=== PATIENT | female | born 1990 | race Hispanic/Latino ===

== ENCOUNTER 2019-01-11 09:25 | Day surgery (SDC) | payer OTHER ==
[2019-01-07 10:44] LABS: BASOPHILS % (AUTO) 0.5 % (0.0-5.0); EOSINOPHILS % (AUTO) 1.8 % (0.0-8.0); HEMATOCRIT 42.8 % (36-48); LYMPHOCYTES % (AUTO) 25.4 % (21.0-51.0); MEAN CORPUSCULAR HEMOGLOBIN 28.4 pg (27.0-33.0); MEAN CORPUSCULAR HGB CONC 33.3 g/dL (32.0-36.0); MEAN CORPUSCULAR VOLUME 85.1 fL (79-99); MONOCYTES % (AUTO) 4.3 % (3.0-13.0); PLATELET COUNT (AUTO) 285 K/uL (130-400); RED BLOOD CELL COUNT(AUTO) 5.03 MIL/uL (4.00-5.50); RED CELL DISTRIBUTION WIDTH 13.4 % (11.0-15.5); WHITE BLOOD COUNT (AUTO) 6.6 K/uL (4.8-10.8)
[2019-01-07 11:20] VITALS: BP 127/59
[~2019-01-11] VITALS: Ht 154.9 cm; Wt 94.2 kg
[2019-01-11] VITALS (13 sets, daily range): BP systolic 101–145; BP diastolic 47–96
[~2019-01-11 09:25] MED LIST: LACTATED RINGERS 1000ML 1,000 ML IV SCH
[2019-01-11] MEDS ORDERED: MIDAZOLAM HCL 1 MG/ML 2ML VIAL ONE (10:39)
[2019-01-11] MEDS ORDERED: FENTANYL CITRATE PF 50 MCG/1 ML 2ML VIAL ONE ×2 (10:39→11:56)
[2019-01-11] MEDS ORDERED: LIDOCAINE PF 2% 5ML ABBOJECT ONE (10:58)
[2019-01-11] MEDS ORDERED: ROCURONIUM 10MG/1ML SYR 10 MG/ML ML ONE (10:59)
[2019-01-11] MEDS ORDERED: PROPOFOL 10 MG/ML 20ML VIAL IV ONE ×2 (10:59→11:19)
[2019-01-11] MEDS ORDERED: ONDANSETRON HCL 4 MG/2 ML VIAL ONE (11:28)
[2019-01-11] MEDS ORDERED: GLYCOPYRROLATE 1 MG/5 ML SYRINGE ONE (11:39)
[2019-01-11] MEDS ORDERED: NEOSTIGMINE 5MG/5ML SYR IV ONE (11:39)
--- NOTE | 2019-01-11 11:52 | NUR ---
ASSESSMENT RECEIVED PT FROM OR STAFF DRSG TO ABD X2 CLEAN AND DRY. OB IN PLACE. SCANT BLOOD NOTED.
[2019-01-11] MEDS ORDERED: MEPERIDINE-PF 25 MG/ML SYG ONE (12:14)
[2019-01-11] MEDS ORDERED: ACETAMINOPHEN-CODEINE 300/30MG TAB PO SCH (13:30)
[2019-01-11] MEDS ORDERED: ACETAMINOPHEN-CODEINE 300/30MG TAB ONE (13:32)
== END 2019-01-11 14:35 | disposition home or self-care (01) ==
LOC: DAH 09:25
PROVIDERS: ATTEND Specialist
DX: Z30.2 Encounter for sterilization (principal); Z98.890 Other specified postprocedural states; Z79.899 Other long term (current) drug therapy; Z79.01 Long term (current) use of anticoagulants
CPT/HCPCS: 36415 ×2; 58671; 84703; 85025; 86850 ×2; 86900 ×2; 86901 ×2; A4215; A4264; A4351; A4930; C1769 ×2; J2001; J2175; J2250; J2405; J2704 ×2; J2710; J3010 ×2; J3490; J7030; J7120